=== PATIENT | male | born 1930 | race Caucasian/White ===

== ENCOUNTER 2016-07-25 08:32 | Day surgery (SDC) | payer OTHER ==
--- NOTE | 2016-07-25 08:31 | MH ---
cc: DO MIS PATEL R. STEVEN M.D. DATE OF ADMISSION: 07/25/2016 HISTORY OF PRESENT ILLNESS Mr. Clancy is an 85-year-old white male being scheduled for an outpatient diagnostic and therapeutic thoracentesis. His history dates back to February when he developed a right pleural effusion and was hospitalized as an outpatient. Fluid was drained and reportedly was a transudate with negative cytology and cultures. He traveled to [place], became more short of breath, came back home and had to go directly to the hospital where he was admitted and again drainage was pursued. He was seen in consultation by pulmonary and cardiology at that time and also seen by his atmospheric sciences professor. He has chronic congestive heart failure, chronic kidney disease with a GFR of about 20, and it was felt after additional drainage and further workup that the fluid was a transudate. Again, cultures and cytology were reportedly negative and the patient had his diuretics adjusted. Since that time he had been getting along fairly well but a recent follow-up chest x-ray July 11 reveals a moderate effusion and he has developed some increased dyspnea on exertion. Obviously though the fluid was managed fairly well with the adjustment in diuretics. He was a 10-15 pack-year smoker but quit smoking 40+ years ago. 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 His only symptom is dyspnea on exertion. He has no unusual cough. No chest pain. No progressive dyspnea of significance certainly not at rest. There is no prior history of malignancy and his only pneumonia was in childhood. PAST MEDICAL HISTORY 1. Hypertension. 2. CKD. 3. GFR 20. 4. Hypothyroidism. 5. Chronic heart disease. 6. Status post ablation for atrial fibrillation. 7. Diastolic heart failure. 8. Moderate aortic regurgitation with some elevation of the pulmonary artery pressures. 9. He has a pacemaker. 10.Arthroscopic surgery on the left knee. 11.Prior cholecystectomy. No history of thromboembolic disease. ALLERGIES None known. MEDICATIONS Reviewed and recorded in his chart. He is on chronic Warfarin for the atrial fibrillation. FAMILY HISTORY Father of complications after strokes in his 80s, mother with pneumonia at 91. A son in good health. A brother who has problems similar to his with regard to the heart and kidneys. SOCIAL HISTORY , living with his of 61 years. 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 Smoking noted. Rarely drinks alcohol. No animal exposures. REVIEW OF SYSTEMS Weight has been stable. No visual complaints. No anginal chest pain. He has chronic edema that has been better controlled recently with diuretics. Pulmonary as noted above. No current GI symptoms, in particular no reflux or abdominal pain. Musculoskeletal complaints, none serious. PHYSICAL EXAMINATION VITAL SIGNS: Blood pressure 126/70, pulse 66, temperature 97, respiratory rate 18, sat 94% room on room air. HEENT: Sclera anicteric. Pharynx is clear. NECK: No adenopathy palpable in the neck or supraclavicular region. Neck veins are not distended. LUNGS: Breath sounds are diminished at the right base with dullness to percussion but no wheezes, rales or congestion. HEART: Irregular heart rhythm. No audible S3. No harsh murmur. ABDOMEN: Soft. EXTREMITIES: 1-2+ pretibial edema both legs. No cyanosis or clubbing. IMAGING Chest x-ray July 11: Mild to moderate effusion increasing compared to previous. ASSESSMENT AND PLAN Mr. Clancy has recurrent pleural effusion. He has actually already been scheduled as an outpatient for re-drainage next week. We have reviewed the orders for evaluation of fluid so we are certain to get appropriate studies done and also going to order a non-contrast CT after this drainage to get a good look at his right lung and see if there is any other underlying pathology that has been missed on the previous chest x-rays which were done with fluid present. It is very likely this is a consequence of his chronic kidney disease and heart disease, but will see what this additional testing reveals. Further diagnostic and/or therapeutic intervention will depend on the results of these studies and his ongoing clinical course. R. MD DINA Tiwari/SUE /12:49 PM /8:28 AM
[~2016-07-25 08:32] MED LIST changes: -AMLO10TA2 PO; -ASPI1TAB69 PO; -ATOR40TA16 PO; -DOCU1CAP25 PO; -FURO40TA PO; -LEVO125T4 PO; -METO25TA3 PO; -MIDAZOLAM HCL 2 MG/2 ML VIAL ONE; -VITA100018 PO; -WARF-20 PO
[2016-07-25 09:12] LABS: APTT (PATIENT) 29.4 SEC (24.3-30.1); INTERNATIONAL NORMALIZED RATIO 1.3 RATIO; PROTHROMBIN TIME - PATIENT 14.2 SEC (9.8-11.6)
[2016-07-25 10:25] VITALS: BP 128/64; PULSE 56; RESP 18; TEMP 97; O2SAT 100
[2016-07-25 11:10] VITALS: BP 134/65; PULSE 53; RESP 20; TEMP 97.6; O2SAT 99
--- NOTE | 2016-07-25 11:18 | RADRPT ---
EXAM DATE/TIME: 07/25/2016 10:59 [facility] COMPARISON: CHEST EXPIRATION ONLY, March 24, 2016, 15:38. INDICATIONS : Post right side thoracentesis, 2L removed MEDICAL HISTORY : Myocardial infarction. Diabetes mellitus type II. pleural effusion SURGICAL HISTORY : Pacemaker. thoracentesis ENCOUNTER: Initial ACUITY: 1 day PAIN SCORE: 3/10 LOCATION: Right chest FINDINGS: A single frontal expiratory view of the chest was performed. Right lung is clear. Elevation left ita diaphragm. Left-sided pacemaker. The cardio-mediastinal contours and bronchopulmonary markings are unremarkable for an expiratory exam . Osseous structures are intact. CONCLUSION: No pneumothorax. Harvey Garcia MD on July 25, 2016 at 11:15 Board Certified Radiologist. This report was verified electronically.
[2016-07-25 11:25] VITALS: BP 138/60; PULSE 56; RESP 20; O2SAT 100
[2016-07-25 12:28] LABS: CHOLESTEROL, PLEURAL FLUID LESS THAN 50 MG/DL; GLUCOSE,PLEURAL FLUID 117 MG/DL
[2016-07-25 12:29] LABS: TOTAL PROTEIN,PLEURAL FLUID 3.4 GM/DL
[2016-07-25 12:52] LABS: PLEURAL FLUID LYMPHS 72 %
--- NOTE | 2016-07-25 12:56 | RADRPT ---
EXAM DATE/TIME: 07/25/2016 11:53 [facility] COMPARISON: CHEST EXPIRATION ONLY, July 25, 2016, 10:59. INDICATIONS : Post thorocentesis compare to chest xray . RADIATION DOSE: 5.52 CTDIvol (mGy) MEDICAL HISTORY : Cardiovascular disease. Right thorocentesis SURGICAL HISTORY : Pacemaker. ENCOUNTER: Initial ACUITY: 1 day PAIN SCALE: 0/10 LOCATION: Right chest TECHNIQUE: Volumetric scanning of the chest was performed. Using automated exposure control and adjustment of t he mA and/or kV according to patient size, radiation dose was kept as low as reasonably achievable to obtain optimal diagnostic quality images. FINDINGS: LUNGS: There is no consolidation or pneumothorax. No concerning pulmonary nodule is visualized. Pleural-bas ed density anteriorly within the right middle lobe measures 3.5 x 1.6 cm. PLEURAE: Soft tissue nodules are seen within the pleura of the left lower lobe medially measuring 2.8 x 1.4 cm . One more superiorly measuring 2.6 x 1.0 cm. Other areas of pleural thickening within the right lowe r lobe care transport nurse medially with calcifications. MEDIASTINUM: The heart and great vessels demonstrate no acute abnormality. There is no mediastinal or hilar lymph adenopathy. Coronary artery calcifications. Heart enlarged. AXILLAE: Within normal limits. No lymphadenopathy. MUSCULOSKELETAL: Within normal limits for patient age. MISCELLANEOUS: The visualized upper abdominal organs demonstrate no acute abnormality. Multiple low-density lesions some which are hyperdense predominat in the right kidney. Cholecystectomy. Left-sided pacemaker with single intact lead. CONCLUSION: 1. Multiple pleural-based nodules largest within the anterior right middle lobe measures 3.5 x 1.6 cm . These are nonspecific but metastatic disease cannot be excluded. Outpatient PET CT scan recommended . 2. Patient is status post right-sided thoracentesis. No significant pleural fluid. No pneumothorax. Harvey Garcia MD on July 25, 2016 at 12:47 Board Certified Radiologist. This report was verified electronically.
--- NOTE | 2016-07-25 14:56 | RADRPT ---
EXAM DATE/TIME: 07/25/2016 10:21 [facility] COMPARISON: No previous studies available for comparison. EXTERNAL COMPARISON: [facility], XR CHEST PA AND LAT, Jul 11 2016, June 09, 2016, April 15, 2016, February [id number], CT THORAX, W/O CONTRAST, March 01, 2016, XR CHEST PA & LAT, February 22, 2016. INDICATIONS : Right pleural effusion. MEDICAL HISTORY : Congestive heart failure. Hypercholesterolemia. Hypertension. Thyroid disease. Atrail fibrillation. A nticoagulant therapy. SURGICAL HISTORY : Pacemaker. Cholecystectomy. Right cataract surgery. Left shoulder surgery. Flutter ablation. Blood transfusions. ENCOUNTER: Subsequent ACUITY: 4 - 6 months PAIN SCORE: 0/10 LOCATION: Right chest FLUID: Total volume of 2,000 cc of clear, yellow fluid was removed. Fluid was sent to lab for ordered studies. TECHNIQUE: 1. Ultrasound guidance for thoracentesis. 2. Thoracentesis. The risks, benefits, and alternatives to ultrasound guided thoracentesis were explained to the patien t in lay simple terms, including the risk of bleeding and infection. Written and verbal informed con sent was obtained. Appropriate area for thoracentesis was marked under ultrasound guidance with the patient in the uprig ht position. Overlying skin was prepped and draped in the usual sterile fashion and with local anest hetic, a dermatotomy was made with an 11 blade scalpel. A 6 Croatian thoracentesis catheter was placed in the pleural space and fluid was removed. Catheter was then removed and a sterile dressing applie d. There were no immediate complications. The patient tolerated the procedure well and the left the ultrasound suite in stable condition. Chest radiograph is to be obtained. CONCLUSION: Uncomplicated ultrasound guided thoracentesis. Harvey Garcia MD on July 25, 2016 at 14:54 Board Certified Radiologist. This report was verified electronically.
== END 2016-07-25 12:15 | disposition home or self-care (01) ==
LOC: HRAD 08:32 → HRIP 09:17 → HRAD 12:15
PROVIDERS: ATTEND Family Medicine
DX: J90 Pleural effusion, not elsewhere classified (principal); R91.8 Other nonspecific abnormal finding of lung field; I13.0 Hypertensive heart and chronic kidney disease with heart failure and stage 1 through stage 4 chronic kidney disease, or unspecified chronic kidney disease; N18.9 Chronic kidney disease, unspecified; I35.1 Nonrheumatic aortic (valve) insufficiency; I50.9 Heart failure, unspecified; I25.10 Atherosclerotic heart disease of native coronary artery without angina pectoris; E78.00 Pure hypercholesterolemia, unspecified; Z95.0 Presence of cardiac pacemaker
CPT/HCPCS: 32555; 36415; 71010; 71250; 82465; 82945; 83615; 84157; 85610; 85730; 87015; 87070; 87102; 87116; 87205; 87206; 88112; 88305; 89051; C1729

== ENCOUNTER → 2016-07-25 | Day surgery (SDC) | payer OTHER ==
[~2016-07-25] MED LIST: AMLO10 PO; AMLO10TA2 PO; ASPI1TAB69 PO; ASPI81 PO; ATOR40TA16 PO; ATOR40TA49 PO; CHOL1CAP6 PO; DOCU1CAP25 PO; FURO1TAB93 PO; FURO40TA PO; KCL20 PO; LEVO125T3 PO; LEVO125T4 PO; METO25TA3 PO; METO50TA PO; MIDAZOLAM HCL 2 MG/2 ML VIAL ONE; VITA100018 PO; WARF-20 PO; WARF3TAB PO
== END | disposition home or self-care (01) ==
LOC: HDOC 09:00
PROVIDERS: ATTEND Internal Medicine Cardiovascular Disease
DX: I48.2 Chronic atrial fibrillation (principal)
CPT/HCPCS: J2250; J3010

== ENCOUNTER 2016-08-24 10:58 | Inpatient (IN) | payer OTHER, MEDICARE ==
[~2016-08-24] VITALS: Ht 175.3 cm; Wt 91.7 kg
[2016-08-24] MEDS ORDERED: AMLO10TA2 PO (11:19)
[2016-08-24] MEDS ORDERED: VITA100018 PO (11:19)
[2016-08-24] MEDS ORDERED: LEVO125T4 PO (11:19)
[2016-08-24] MEDS ORDERED: FURO40TA PO (11:19)
[2016-08-24] MEDS ORDERED: METO25TA3 PO (11:19)
[2016-08-24] MEDS ORDERED: WARF-20 PO (11:19)
[2016-08-24] MEDS ORDERED: ATOR40TA16 PO (11:19)
[2016-08-24] MEDS ORDERED: ASPI1TAB69 PO (11:19)
[2016-09-12] VITALS (15 sets, daily range): BP systolic 131–160; BP diastolic 64–74; PULSE 52–73; RESP 16; TEMP 96.1–98.1; O2SAT 96–99
[2016-09-12] MEDS ORDERED: POVIDONE IODINE 5% (ANTISEPSIS KIT) 4 APPLICATIONS EACH NARE PRN (06:00)
[2016-09-12] MEDS ORDERED: METOPROLOL TARTRATE 25 MG TAB PO PRN (06:00)
[2016-09-12] MEDS ORDERED: SODIUM CHLORID 0.9% 500 ML IV PRN (06:00)
[2016-09-12] MEDS ORDERED: INSULIN HUMAN REGULAR 1,000 UNITS/10 ML VIAL SQ PRN (06:00)
[2016-09-12] MEDS ORDERED: LACTATED RINGER'S 1000 ML IV PRN (06:00)
[2016-09-12] MEDS ORDERED: CHLORHEXIDINE GLUCONATE 2 % 1 PACK (2 CLOTHS) TOPICAL PRN (06:00)
[2016-09-12 06:46] LABS: APTT (PATIENT) 28.2 SEC (24.3-30.1); INTERNATIONAL NORMALIZED RATIO 1.1 RATIO; PROTHROMBIN TIME - PATIENT 11.7 SEC (9.8-11.6)
[2016-09-12] MEDS ORDERED: MIDAZOLAM HCL 2 MG/2 ML VIAL ONE (07:14)
[2016-09-12] MEDS ORDERED: FAMOTIDINE 20 MG/2 ML VIAL ONE (07:14)
[2016-09-12] MEDS ORDERED: STERILE TALC 4 GM AEROSOL CAN I-PLEURAL ONE (07:40)
[2016-09-12] MEDS ORDERED: BUPIVACAINE HCL PF 0.5% 10 ML VIAL INFIL ONE (07:40)
[2016-09-12] MEDS ORDERED: MISC INFORMATION OTHER ONE (08:45)
[2016-09-12] MEDS ORDERED: RESP: ALBUTEROL 2.5 MG/3 ML NEB (PRN) NEB (08:45)
[2016-09-12] MEDS ORDERED: GLUCAGON 1 MG/ML VIAL IV PRN (08:45)
[2016-09-12] MEDS ORDERED: DO NOT ADM ANY ANTICOAGULANT DRUGS PRN (08:45)
[2016-09-12] MEDS ORDERED: ONDANSETRON HCL 4 MG/2 ML VIAL IV PUSH PRN (08:45)
[2016-09-12] MEDS ORDERED: ACETAMINOPHEN 325 MG TAB PO PRN (08:45)
[2016-09-12] MEDS ORDERED: Post-op Orders (for Pharmacy) MISC OTHER ONE (08:45)
[2016-09-12] MEDS ORDERED: MAGNESIUM HYDROXIDE SUSP 30 ML CUP PO PRN (08:45)
[2016-09-12] MEDS ORDERED: DEXTROSE 50% IN WATER 50 ML VIAL(D50) IV PUSH PRN (08:45)
--- NOTE | 2016-09-12 08:46 | PD.OP ---
cc: Rosalee Suero MD Operative Report Date of Surgery: Sep 12, 2016 Preoperative Diagnosis: (1) Pleural effusion (2) CKD (chronic kidney disease) stage 4, GFR 15-29 ml/min (3) CHF (congestive heart failure) Postoperative Diagnosis: same Procedure: Right thoracoscopic exploration for recurrent pleural effusion, talc pleuradesis Anesthesia: Dr. Erazo Surgeon: Rosalee Suero Insurance Loss Assessor(s): JODI Valenzuela Operation and Findings: After adequate general anesthesia the patient was placed in the left lateral decubitus position and the right chest was prepped and draped in usual manner. A small posterior port incision was performed and electrocautery was used to obtain hemostasis and carry the dissection down through the fascia. A 22G seeker needle was used initially posteriorly and serous fluid was aspirated. A port was initially placed posteriorly followed by the camera. Overall, ~600 ml of serous effusion was drained. A second anterior port was positioned at ~ 6th intercostal space. Exploration of the right hemithorax was significant for few adhesions with no inflammation or sign of masses or nodules. A talc pleuradesis was performed through both ports. A 32F right angle chest tube was positioned through the anterior port, and secured with a 0-silk suture. The lung was ventilated and no significant air leaks were found. The subcutaneous tissues of the posterior port was approximated running 2-0 Vicryl suture and the skin was approximated using running 4-0 Monocryl subcuticular stitch. All sponge and history counts were correct at the close the procedure and the patient was transferred to the PACU for recovery purposes. Rosalee Suero MD Sep 12, 2016 08:46
[2016-09-12] MEDS: CHOLECALCIFEROL (VIT D3) 1000 UNIT TAB PO SCH (09:00)
[2016-09-12] MEDS ORDERED: fentaNYL CITRATE 250 MCG/5 ML AMP ONE (09:03)
[2016-09-12] MEDS ORDERED: *RESP: ALBUTEROL 2.5 MG/3 ML NEB (PRN) PERIprocedural Use ONLY NEB ONE (09:31)
[2016-09-12] MEDS: ACETAMINOPHEN 1000 MG/100 ML VIAL IV SCH ×3 (09:40→21:25)
[2016-09-12] MEDS: METOPROLOL TARTRATE 25 MG TAB PO SCH ×2 (09:51→21:23)
[2016-09-12 09:52] LABS: PLEURAL FLUID LYMPHS 96 %
[2016-09-12] MEDS: ASPIRIN EC 81 MG TABEC PO SCH (10:00)
[2016-09-12] MEDS: LEVOTHYROXINE SODIUM 125 MCG TAB PO SCH (10:00)
[2016-09-12] MEDS ORDERED: FUROSEMIDE 40 MG TAB PO SCH (10:00)
--- NOTE | 2016-09-12 11:14 | RADRPT ---
EXAM DATE/TIME: 09/12/2016 10:52 [facility] COMPARISON: CHEST SINGLE AP, March 20, 2016, 21:31. INDICATIONS : Post-op right thoracotomy. MEDICAL HISTORY : Hypertension. SURGICAL HISTORY : Cholecystectomy. Pacemaker. Cataracts. ENCOUNTER: Initial ACUITY: 1 day PAIN SCORE: 0/10 LOCATION: Chest FINDINGS: A right-sided chest tube is noted in good position. There is no pneumothorax. A tiny right pleural effusion is noted. The heart is enlarged. Degenerative changes and mild scoliosis of the thoracic s pine are noted. Minimal right basilar patchiness is noted consistent with atelectasis and/or infiltr ate. CONCLUSION: 1. Minimal right basilar patchiness consistent with atelectasis and/or infiltrate. 2. Cardiomegaly. 3. No pneumothorax. 4. Tiny right pleural effusion. 5. Degenerative changes and scoliosis of the thoracolumbar spine. Jayant Barger MD on September 12, 2016 at 11:08 Board Certified Radiologist. This report was verified electronically.
[2016-09-12] MEDS: INSULIN ASPART SUPPLEMENTAL SCALE SQ SCH ×2 (12:00→18:13)
[2016-09-12] MEDS ORDERED: PROPOFOL 200 MG/20 ML AMP IV ONE (14:04)
[2016-09-12] MEDS ORDERED: SODIUM CHLORID 0.9% 500 ML INJ 500 ML IV ONE (14:05)
[2016-09-12] MEDS ORDERED: ONDANSETRON HCL 4 MG/2 ML VIAL IV PUSH ONE (14:05)
[2016-09-12] MEDS ORDERED: NEOSTIGMINE 3 MG/3 ML SYR IV ONE (14:05)
[2016-09-12] MEDS: oxyCODONE/ACETAMINOPHEN 5 MG/325 MG TAB PO PRN (18:12)
[2016-09-12] MEDS: FUROSEMIDE 40 MG TAB PO SCH (18:23)
[2016-09-12] MEDS: PANTOPRAZOLE SOD 40 MG DELAYED RELEASE TAB PO SCH (21:23)
[2016-09-12] MEDS: ATORVASTATIN 40 MG TAB PO SCH (21:24)
[2016-09-12] MEDS: DOCUSATE CALCIUM 240 MG CAP PO SCH (21:24)
[2016-09-13] VITALS (27 sets, daily range): BP systolic 143–151; BP diastolic 65–77; PULSE 55–71; RESP 14–16; TEMP 97.4–97.9; O2SAT 92–96
[2016-09-13] MEDS: ACETAMINOPHEN 1000 MG/100 ML VIAL IV SCH (03:51)
[2016-09-13 06:08] LABS: AUTOMATED NEUTROPHIL # 7.6 TH/MM3 (1.8-7.7); BASOPHIL % 0.1 % (0.0-2.0); HEMATOCRIT 27.6 % (39.0-51.0); HEMO FLAGS DIFF FINAL; LYMPH % 6.2 % (9.0-44.0); LYMPHOCYTE # 0.5 TH/MM3 (1.0-4.8); MEAN CELL VOLUME 84.2 FL (80.0-100.0); MEAN CORPUSCULAR HEMOGLOBIN 27.5 PG (27.0-34.0); MEAN CORPUSCULAR HGB CONC 32.7 % (32.0-36.0); MONO % 5.5 % (0.0-8.0); NEUT % 88.2 % (16.0-70.0); PLATELET COUNT 179 TH/MM3 (150-450); RED BLOOD COUNT 3.28 MIL/MM3 (4.50-5.90); RED CELL DISTRIBUTION WIDTH 17.4 % (11.6-17.2); WHITE BLOOD COUNT 8.7 TH/MM3 (4.0-11.0)
[2016-09-13] MEDS: INSULIN ASPART SUPPLEMENTAL SCALE SQ SCH ×4 (06:10→17:04)
[2016-09-13] MEDS: LEVOTHYROXINE SODIUM 125 MCG TAB PO SCH (06:10)
--- NOTE | 2016-09-13 06:10 | RADRPT ---
EXAM DATE/TIME: 09/13/2016 04:51 [facility] COMPARISON: CHEST SINGLE AP, September 12, 2016, 10:52. INDICATIONS : Post thoracotomy. MEDICAL HISTORY : Hypertension. Cardiovascular disease. SURGICAL HISTORY : Pacemaker. Thoracotomy. ENCOUNTER: Subsequent ACUITY: 2 days PAIN SCORE: Non-responsive. LOCATION: Bilateral chest FINDINGS: A single view of the chest demonstrates no interval change in the pacemaker or right sided chest tube . There some minimal consolidation right lung base and small bilateral pleural effusions. Mild pulmon cristopher hilar vascular congestion.. Osseous structures are intact. CONCLUSION: Stable examination of the chest with persistent small pleural effusions and mild perihilar vascular c ongestion. Edinson Duffy MD on September 13, 2016 at 6:08 Board Certified Radiologist. This report was verified electronically.
[2016-09-13 06:18] LABS: PROTHROMBIN TIME - PATIENT 11.5 SEC (9.8-11.6)
[2016-09-13 06:49] LABS: BICARBONATE 26.5 MEQ/L (21.0-32.0)
[2016-09-13] MEDS: METOPROLOL TARTRATE 25 MG TAB PO SCH ×2 (09:00→21:31)
[2016-09-13] MEDS: ASPIRIN EC 81 MG TABEC PO SCH (09:18)
[2016-09-13] MEDS: FUROSEMIDE 40 MG TAB PO SCH (09:18)
[2016-09-13] MEDS: CHOLECALCIFEROL (VIT D3) 1000 UNIT TAB PO SCH (09:18)
--- NOTE | 2016-09-13 16:38 | PD.CAR.PN ---
CVT Progress Note Subjective/Hospital Course: 85/ male hx of recurrent pleural effusion/ PMH: chronic anemia, pacer insitu, CKD stage 4, CHF diastolic dysfunction Afib surgery: Right thoracoscopic exploration for recurrent pleural effusion, talc pleurodesis 09/12 cytology pending 09/13 pt on room air, pain controlled chest tube drained 160cc/ 12 hrs will leave in place eval for removal in am Objective: Vital Signs Date Time Temp Pulse Resp B/P Pulse Ox O2 Delivery O2 Flow Rate FiO2 09/13/16 15:50 97.5 62 16 150/65 93 09/13/16 15:49 93 Room Air 09/13/16 14:00 64 09/13/16 13:00 67 09/13/16 12:31 63 09/13/16 12:00 97.7 63 16 151/76 92 09/13/16 11:00 63 09/13/16 11:00 92 Room Air 09/13/16 10:00 58 09/13/16 09:47 55 09/13/16 08:00 57 09/13/16 08:00 97.4 57 16 143/70 96 09/13/16 07:38 63 09/13/16 07:30 95 Room Air 09/13/16 06:00 61 09/13/16 05:00 62 09/13/16 04:03 94 Room Air 09/13/16 04:02 97.9 71 16 146/74 94 09/13/16 04:00 65 09/13/16 03:00 58 09/13/16 02:00 56 09/13/16 01:00 55 09/13/16 00:00 56 09/12/16 23:54 96 Room Air 09/12/16 23:53 97.6 59 16 133/69 96 09/12/16 23:00 54 09/12/16 22:00 54 09/12/16 21:00 54 09/12/16 20:00 98 Room Air 09/12/16 20:00 97.6 70 16 131/64 98 09/12/16 20:00 56 09/12/16 19:00 62 09/12/16 18:00 64 09/12/16 17:00 56 Labs: Laboratory Tests Test 09/13/16 05:02 White Blood Count 8.7 TH/MM3 (4.0-11.0) Red Blood Count 3.28 MIL/MM3 (4.50-5.90) Hemoglobin 9.0 GM/DL (13.0-17.0) Hematocrit 27.6 % (39.0-51.0) Mean Corpuscular Volume 84.2 FL (80.0-100.0) Mean Corpuscular Hemoglobin 27.5 PG (27.0-34.0) Mean Corpuscular Hemoglobin 32.7 % Concent (32.0-36.0) Red Cell Distribution Width 17.4 % (11.6-17.2) Platelet Count 179 TH/MM3 (150-450) Mean Platelet Volume 8.5 FL (7.0-11.0) Neutrophils (%) (Auto) 88.2 % (16.0-70.0) Lymphocytes (%) (Auto) 6.2 % (9.0-44.0) Monocytes (%) (Auto) 5.5 % (0.0-8.0) Eosinophils (%) (Auto) 0.0 % (0.0-4.0) Basophils (%) (Auto) 0.1 % (0.0-2.0) Neutrophils # (Auto) 7.6 TH/MM3 (1.8-7.7) Lymphocytes # (Auto) 0.5 TH/MM3 (1.0-4.8) Monocytes # (Auto) 0.5 TH/MM3 (0-0.9) Eosinophils # (Auto) 0.0 TH/MM3 (0-0.4) Basophils # (Auto) 0.0 TH/MM3 (0-0.2) CBC Comment DIFF FINAL Differential Comment Prothrombin Time 11.5 SEC (9.8-11.6) Prothromb Time International 1.0 RATIO Ratio Sodium Level 136 MEQ/L (136-145) Potassium Level 4.0 MEQ/L (3.5-5.1) Chloride Level 98 MEQ/L (98-107) Carbon Dioxide Level 26.5 MEQ/L (21.0-32.0) Anion Gap 12 MEQ/L (5-15) Blood Urea Nitrogen 57 MG/DL (7-18) Creatinine 3.20 MG/DL (0.60-1.30) Estimat Glomerular Filtration 19 ML/MIN (>89) Rate Random Glucose 130 MG/DL (74-106) Calcium Level 9.9 MG/DL (8.5-10.1) Result Diagram: 09/13/16 0502 09/13/16 0502 Telemetry: afib (1) A-fib Plan: resume coumadin tomorrow (2) Anemia Plan: HGB stable 9.0 (3) Hypertension Plan: stable (4) History of cardiac pacemaker (5) CHF (congestive heart failure) (6) CKD (chronic kidney disease) stage 4, GFR 15-29 ml/min Plan: creatinine 3.20 recheck lab in one week prior to f/u Luz Maria Wilkinson Sep 13, 2016 16:38
[2016-09-13] MEDS: oxyCODONE/ACETAMINOPHEN 5 MG/325 MG TAB PO PRN ×2 (17:03→21:32)
[2016-09-13] MEDS: ATORVASTATIN 40 MG TAB PO SCH (21:30)
[2016-09-13] MEDS: DOCUSATE CALCIUM 240 MG CAP PO SCH (21:31)
[2016-09-13] MEDS: PANTOPRAZOLE SOD 40 MG DELAYED RELEASE TAB PO SCH (21:31)
[2016-09-14] VITALS (16 sets, daily range): BP systolic 136–171; BP diastolic 63–77; PULSE 57–84; RESP 16–20; TEMP 97.8–98.4; O2SAT 92–95
[2016-09-14] MEDS: LEVOTHYROXINE SODIUM 125 MCG TAB PO SCH (05:06)
[2016-09-14] MEDS: INSULIN ASPART SUPPLEMENTAL SCALE SQ SCH ×3 (05:21→11:51)
--- NOTE | 2016-09-14 06:09 | RADRPT ---
EXAM DATE/TIME: 09/14/2016 04:51 [facility] COMPARISON: CHEST SINGLE AP, September 13, 2016, 4:51. INDICATIONS : Shortness of breath. MEDICAL HISTORY : Hypertension. Cardiovascular disease. SURGICAL HISTORY : Pacemaker. Thoracotomy ENCOUNTER: Subsequent ACUITY: 3 days PAIN SCORE: Non-responsive. LOCATION: Bilateral chest FINDINGS: A single view of the chest demonstrates the right-sided consolidation and pleural effusion are unchan ged. Right-sided chest tube again seen with its tip overlying the right lung apex. Left lung is clear . Single-lead pacer in good position.. The cardiomediastinal contours are unremarkable. Osseous str uctures are intact. CONCLUSION: Persistent consolidation and pleural effusion of the right side. No new infiltrate or mass. Edinson Duffy MD on September 14, 2016 at 6:06 Board Certified Radiologist. This report was verified electronically.
[2016-09-14 06:24] LABS: INTERNATIONAL NORMALIZED RATIO 1.1 RATIO; PROTHROMBIN TIME - PATIENT 11.9 SEC (9.8-11.6)
[2016-09-14] MEDS ORDERED: FUROSEMIDE 40 MG TAB PO SCH (09:00)
[2016-09-14] MEDS: CHOLECALCIFEROL (VIT D3) 1000 UNIT TAB PO SCH (09:00)
[2016-09-14] MEDS: ASPIRIN EC 81 MG TABEC PO SCH (09:10)
[2016-09-14] MEDS: METOPROLOL TARTRATE 25 MG TAB PO SCH (09:10)
[2016-09-14] MEDS: oxyCODONE/ACETAMINOPHEN 5 MG/325 MG TAB PO PRN (09:40)
--- NOTE | 2016-09-14 13:49 | RADRPT ---
EXAM DATE/TIME: 09/14/2016 12:50 [facility] COMPARISON: CHEST SINGLE AP, September 12, 2016, 10:52. CT THORAX W/O CONTRAST, July 25, 2016, 11:53. CHEST EXP IRATION ONLY, July 25, 2016, 10:59. CHEST SINGLE AP, September 14, 2016, 4:51. INDICATIONS : Chest tube removal. Evaluate for pneumothorax. MEDICAL HISTORY : Cardiovascular disease. Right thoracentesis SURGICAL HISTORY : Pacemaker. ENCOUNTER: Subsequent ACUITY: 3 days PAIN SCORE: 0/10 LOCATION: Bilateral chest FINDINGS: Chest tube has been removed on the right without pneumothorax. Minimal parenchymal changes are prese nt in the right base. Left lung is clear. Pacer is noted. Heart is enlarged with mild interstitial edema. CONCLUSION: There is no evidence for pneumothorax. Steffen Al MD FACR on September 14, 2016 at 13:37 Board Certified Radiologist. This report was verified electronically.
[2016-09-14] MEDS ORDERED: DOCU1CAP25 PO (14:02)
[2016-09-14] MEDS ORDERED: FURO40TA PO (14:02)
--- NOTE | 2016-09-14 14:13 | HHI.DS ---
Discharge Summary Admission Date Sep 12, 2016 at 05:21 Discharge Date: Sep 14, 2016 Admitting Diagnosis recurrent pleural effusion (1) Right thoracoscopic exploration for recurrent pleural effusion, talc pleuradesis Diagnosis: Secondary (2) CKD (chronic kidney disease) stage 4, GFR 15-29 ml/min Diagnosis: Principal (3) History of cardiac pacemaker Diagnosis: Secondary (4) Hypertension Diagnosis: Principal (5) A-fib Diagnosis: Principal (6) CHF (congestive heart failure) Diagnosis: Secondary (7) Pleural effusion Diagnosis: Secondary Procedures Right thoracoscopic exploration for recurrent pleural effusion, talc pleuradesis 09/13 Brief History 85/ male hx of recurrent pleural effusion/ PMH: chronic anemia, pacer insitu, CKD stage 4, CHF diastolic dysfunction Afib surgery: Right thoracoscopic exploration for recurrent pleural effusion, talc pleurodesis 09/12 CBC/BMP: 09/13/16 0502 09/13/16 0502 Significant Findings Laboratory Tests Test 09/12/16 09/12/16 09/13/16 09/14/16 06:20 08:16 05:02 05:37 Prothrombin Time 11.7 SEC 11.9 SEC (9.8-11.6) (9.8-11.6) Pleural Fluid WBC 1153 /MM3 (0-10) Pleural Fluid RBC 93368 /MM3 (0-0) Red Blood Count 3.28 MIL/MM3 (4.50-5.90) Hemoglobin 9.0 GM/DL (13.0-17.0) Hematocrit 27.6 % (39.0-51.0) Red Cell Distribution Width 17.4 % (11.6-17.2) Neutrophils (%) (Auto) 88.2 % (16.0-70.0) Lymphocytes (%) (Auto) 6.2 % (9.0-44.0) Lymphocytes # (Auto) 0.5 TH/MM3 (1.0-4.8) Blood Urea Nitrogen 57 MG/DL (7-18) Creatinine 3.20 MG/DL (0.60-1.30) Estimat Glomerular Filtration 19 ML/MIN (>89) Rate Random Glucose 130 MG/DL (74-106) Imaging PE at Discharge GENERAL: SKIN: Warm and dry.incision intact right chest / chest tube removed HEAD: Normocephalic. EYES: No scleral icterus. No injection or drainage. NECK: Supple, trachea midline. No JVD or lymphadenopathy. CARDIOVASCULAR: irregular rate and rhythm without murmurs, gallops, or rubs. RESPIRATORY: Breath sounds equal bilaterally. diminished on right No accessory muscle use. GASTROINTESTINAL: Abdomen soft, non-tender, nondistended. MUSCULOSKELETAL: No cyanosis, or edema. BACK: Nontender without obvious deformity. No CVA tenderness. Hospital Course 09/13 pt on room air, pain controlled chest tube drained 160cc/ 12 hrs will leave in place 09/14 chest tube removed without difficulty weaned to room air post chest tube removal cxr noted, no evidence of PTX will dc home today ok to resume coumadin Pt Condition on Discharge: Good Discharge Disposition: Discharge Home Discharge Instructions DIET: Follow Instructions for: Heart Healthy Diet Activities you can perform: Shower Only-No Bath Activities to avoid: Lifting/Bending, Strenuous Activity, Driving Additional Activity Instructio: no lifting > 8 lbs or gallon of milk Follow up Referrals: [facility] PCP Follow-up Pulmonology with Mireya Galvez MD Surgical New Orders: BASIC METABOLIC PROF - 2 Weeks New Medications: Docusate Calcium (Stool Softener) 240 Mg Cap 240 MG PO HS Constipation #30 CAP Furosemide (Furosemide) 40 Mg Tab 40 MG PO DAILY chf #30 Ref 1 TAB Continued Medications: Amlodipine (Amlodipine) 10 Mg Tab 10 MG PO DAILY Blood Pressure Management #30 Ref 0 TAB Aspirin (Aspirin) 81 Mg Tabdr 81 MG PO DAILY TAB Atorvastatin (Atorvastatin) 40 Mg Tab 40 MG PO HS Cholesterol Management #30 Ref 0 TAB Cholecalciferol (Vitamin D3) 1,000 Unit Tab 1000 UNITS PO DAILY Nutritional Supplement #1 Ref 0 BOTTLE Levothyroxine (Levothyroxine) 125 Mcg Tab 125 MCG PO DAILY Thyroid #30 Ref 0 TAB Metoprolol Tartrate (Metoprolol Tartrate) 25 Mg Tab 25 MG PO BID #60 Ref 0 TAB Warfarin (Warfarin) 4 Mg Tab 4 MG PO DAILY Blood Clot Prevention #30 Ref 0 TAB Discontinued Medications: Furosemide (Furosemide) 40 Mg Tab 40 MG PO BID #60 Ref 0 TAB Luz Maria Wilkinson Sep 14, 2016 14:12
== END 2016-09-14 15:00 | disposition home or self-care (01) | DRG 167 ==
LOC: HSDI 09-12 05:21 → HCIN 09-12 12:44
PROVIDERS: ADMIT Thoracic Surgery (Cardiothoracic Vascular Surgery); ATTEND Thoracic Surgery (Cardiothoracic Vascular Surgery)
PROC: 3E0L3GC Introduction of Other Therapeutic Substance into Pleural Cavity, Percutaneous Approach (ICD-10-PCS; 2016-09-12)
PROC: 0BJQ4ZZ Inspection of Pleura, Percutaneous Endoscopic Approach (ICD-10-PCS; principal; 2016-09-12 07:19)
DX: J90 Pleural effusion, not elsewhere classified (principal); I50.32 Chronic diastolic (congestive) heart failure; I12.9 Hypertensive chronic kidney disease with stage 1 through stage 4 chronic kidney disease, or unspecified chronic kidney disease; N18.4 Chronic kidney disease, stage 4 (severe); I48.92 Unspecified atrial flutter; I48.91 Unspecified atrial fibrillation; J44.9 Chronic obstructive pulmonary disease, unspecified; Z95.0 Presence of cardiac pacemaker; Z79.01 Long term (current) use of anticoagulants; Z79.82 Long term (current) use of aspirin; D64.9 Anemia, unspecified; E78.5 Hyperlipidemia, unspecified; E03.9 Hypothyroidism, unspecified; Z86.718 Personal history of other venous thrombosis and embolism; Z87.891 Personal history of nicotine dependence
CPT/HCPCS: 71010; 80048; 82948; 85025; 85610; 85730; 86850; 86900; 86901; 87015; 87070; 87102; 87116; 87205; 87206; 88112; 88305; 89051; 94150; 94664; J0131; J0690; J1815; J2250; J2405; J2710; J3010; J7040; J7613

== ENCOUNTER → 2016-08-24 | Outpatient (CLI) | payer OTHER ==
[~2016-08-24] MED LIST changes: +AMLO10TA2 PO; +ASPI1TAB69 PO; +ATOR40TA16 PO; +DOCU1CAP25 PO; +FURO40TA PO; +LEVO125T4 PO; +METO25TA3 PO; +VITA100018 PO; +WARF-20 PO
[2016-08-24 12:22] LABS: BLOOD, URINE SMALL (NEG); COMMENT (UR) CULT NOT INDICATED; CULTURE IF INDICATED CULT NOT INDICATED; GLUCOSE,URINE NEG (NEG); HYALINE CAST, URINE 2 /lpf (RARE); KETONE, URINE NEG (NEG); NITRITE,URINE NEG (NEG); SQUAMOUS EPITHELIAL CELL URINE <1 /hpf (0-5); URINE COLOR YELLOW (YELLW/STRAW)
[2016-08-24 12:24] LABS: HEMATOCRIT 29.3 % (39.0-51.0); MEAN CELL VOLUME 84.9 FL (80.0-100.0); MEAN CORPUSCULAR HEMOGLOBIN 27.5 PG (27.0-34.0); MEAN CORPUSCULAR HGB CONC 32.4 % (32.0-36.0); PLATELET COUNT 259 TH/MM3 (150-450); RED BLOOD COUNT 3.45 MIL/MM3 (4.50-5.90); RED CELL DISTRIBUTION WIDTH 18.4 % (11.6-17.2); REVIEW FLAG FINAL; WHITE BLOOD COUNT 8.1 TH/MM3 (4.0-11.0)
[2016-08-24 12:30] LABS: APTT (PATIENT) 30.4 SEC (24.3-30.1); INTERNATIONAL NORMALIZED RATIO 1.2 RATIO; PROTHROMBIN TIME - PATIENT 13.7 SEC (9.8-11.6)
[2016-08-24 12:42] LABS: BICARBONATE 29.5 MEQ/L (21.0-32.0); POTASSIUM 3.8 MEQ/L (3.5-5.1)
--- NOTE | 2016-08-24 19:51 | EKG ---
Date Performed: 08/24/2016 Time Performed: 11:10:22 PTAGE: 85 years EKG: ATRIAL FIBRILLATION ELECTRONIC VENTRICULAR PACEMAKER NONSPECIFIC ST-T CHANGES ABNORMAL RHYT ECG PREVIOUS TRACING : 03/20/2016 21.05 Compared to prior tracing no significant change DOCTOR: Maria R Mccollum Interpretating Date/Time 08/24/2016 19:49:54
== END ==
LOC: CPRE 10:55
PROVIDERS: ATTEND Thoracic Surgery (Cardiothoracic Vascular Surgery)
DX: Z01.810 Encounter for preprocedural cardiovascular examination (principal); Z01.812 Encounter for preprocedural laboratory examination; Z79.01 Long term (current) use of anticoagulants; J90 Pleural effusion, not elsewhere classified; R94.31 Abnormal electrocardiogram [ECG] [EKG]
CPT/HCPCS: 36415; 80048; 81001; 85027; 85610; 85730; 86850; 86900; 86901; 93005

== ENCOUNTER → 2016-09-07 | Outpatient (CLI) | payer OTHER ==
[~2016-09-07] MED LIST changes: -AMLO10 PO; -ASPI81 PO; -ATOR40TA49 PO; -CHOL1CAP6 PO; -FURO1TAB93 PO; -KCL20 PO; -LEVO125T3 PO; -METO50TA PO; -WARF3TAB PO
== END ==
LOC: CPRE 10:33
PROVIDERS: ATTEND Thoracic Surgery (Cardiothoracic Vascular Surgery)
DX: Z01.818 Encounter for other preprocedural examination (principal)

== ENCOUNTER → 2017-01-09 | Outpatient (CLI) | payer OTHER ==
--- NOTE | 2017-01-11 10:33 | RSPPFT ---
DATE OF PROCEDURE: 01/09/17 COMMENTS: VOLUMES DYNAMIC: FVC and FEV1 mildly reduced. STATIC: TLC, RV and FRC are all mildly reduced. FLOWS: FV1% normal; FEF 25-75 mildly reduced. DIFFUSION: Severely reduced. FLOW VOLUME LOOP: Restrictive configuration. IMPRESSION: Mild to moderate restrictive ventilator defect with a severe reduction in diffusion. There is no significant airways obstruction and no significant improvement post-bronchodilator.
== END ==
LOC: PHRSP 10:39
PROVIDERS: ATTEND Internal Medicine
DX: R06.02 Shortness of breath (principal)
CPT/HCPCS: 94060; 94620; 94726; 94729

== ENCOUNTER 2017-10-14 11:14 | Emergency (ER) | payer OTHER ==
[~2017-10-14] VITALS: Ht 175.3 cm; Wt 95.0 kg
[2017-10-14 11:17] VITALS: BP 154/67; PULSE 61; RESP 16; TEMP 97.8; O2SAT 93
[2017-10-14] MEDS ORDERED: ASPI-516 CHEW (11:31)
[2017-10-14] MEDS ORDERED: WARF-58 PO ×2 (11:31)
[2017-10-14] MEDS ORDERED: FURO40TA PO (11:32)
[2017-10-14] MEDS ORDERED: TETANUS/DIPHTHERIA TOXOID ADULT 0.5 ML VIAL IM ONE (11:45)
--- NOTE | 2017-10-14 11:45 | PD ---
HPI Chief Complaint: Fall Time Seen by Provider: 11:41 Travel History International Travel<30 days: No Contact w/Intl Traveler<30days: No Traveled to known affect area: No History of Present Illness HPI Patient presents with complaints of right orbital hematoma and right forearm and hand pain. Reports a fall at approximately 2:00 yesterday. States he stumbled in an area of cracked concrete and fell forward hitting his right face and extending his right arm to break his fall. Denies any loss of consciousness. Denies any headache. Denies any neck pain. Tetanus 2016. Denies any visual changes or loss. Denies any eye movement pain. Reports uncontrolled bleeding from a skin tear in his right upper arm. He is on Coumadin for atrial fibrillation. Reports increased swelling of the right forearm and right hand. Pain 4 out of 10. Aggravated with movement. Relieved with rest. PFSH Past Medical History Hx Anticoagulant Therapy: Yes (WARFARIN) Asthma: No Atrial Fibrillation: Yes Blood Disorders: No Anxiety: No Depression: No Heart Rhythm Problems: Yes (AFIB) Cancer: No Cardiovascular Problems: Yes (PM/ AFIB ) High Cholesterol: Yes Chemotherapy: No Chest Pain: No Congestive Heart Failure: Yes COPD: No Diabetes: No Diminished Hearing: Yes (bilateral) Endocrine: Yes Genitourinary: No Hepatitis: No Hiatal Hernia: No Hypertension: Yes Immune Disorder: No Musculoskeletal: Yes (LIMITED ROM LUE) Neurologic: No Psychiatric: No Reproductive: No Respiratory: Yes (PLEURAL EFFUSIONS) Immunizations Current: Yes Radiation Therapy: No Sleep Apnea: No Thyroid Disease: Yes Tetanus Vaccination: < 5 Years Influenza Vaccination: Yes ?: Not Past Surgical History Abdominal Surgery: Yes (CHOLECYSTECTOMY) AICD: No Body Medical Devices: PACER Cardiac Surgery: Yes (VENTRICULAR PACER, ABLATION) Cholecystectomy: Yes Ear Surgery: No Endocrine Surgery: No Eye Surgery: Yes (RIGHT CATARACT SURGERY 04/17/14) Genitourinary Surgery: No Gynecologic Surgery: No Joint Replacement: No Pacemaker: Yes (VENTRICULAR) Thoracic Surgery: No Other Surgery: Yes (FLUTTER ABALTION/LEFT SHOULDER) Social History Alcohol Use: Yes (OCC) Tobacco Use: No (40 YR AGO) Substance Use: No Allergies-Medications (Allergen,Severity, Reaction): Coded Allergies: No Known Allergies (Verified Adverse Reaction, Unknown, 10/14/17) Reported Meds & Prescriptions Reported Meds & Active Scripts Active Reported Furosemide 40 Mg Tab 40 Mg PO BID Warfarin 3 Mg Tab 3 Mg PO TU,WE,FR.SA,KLEIN Aspirin 81 Mg Chew 81 Mg CHEW DAILY Atorvastatin (Atorvastatin Calcium) 40 Mg Tab 40 Mg PO HS Warfarin 4 Mg Tab 4 Mg PO MO,TH Metoprolol Tartrate 25 Mg Tab 25 Mg PO BID Amlodipine (Amlodipine Besylate) 10 Mg Tab 5 Mg PO BID Levothyroxine (Levothyroxine Sodium) 125 Mcg Tab 125 Mcg PO DAILY Review of Systems General / Constitutional: No: Fever Eyes: No: Visual changes HENT: No: Headaches Cardiovascular: No: Chest Pain or Discomfort Respiratory: No: Shortness of Breath Gastrointestinal: No: Abdominal Pain Genitourinary: No: Dysuria Musculoskeletal: Positive: Edema, Pain Skin: No Rash Neurologic: No: Weakness Psychiatric: No: Depression Endocrine: No: Polydipsia Hematologic/Lymphatic: No: Easy Bruising Physical Exam Narrative GENERAL: Well-nourished, well-developed patient. SKIN: Focused skin assessment warm/dry. HEAD: Normocephalic. Significant right orbital hematoma, unable to palpate ocular rim EYES: No scleral icterus. No injection or drainage. Ocular movement intact NECK: Supple, trachea midline. No JVD or lymphadenopathy. CARDIOVASCULAR: Regular rate and rhythm without murmurs, gallops, or rubs. RESPIRATORY: Breath sounds equal bilaterally. No accessory muscle use. GASTROINTESTINAL: Abdomen soft, non-tender, nondistended. MUSCULOSKELETAL: No cyanosis, or edema. Examination of the distal right upper arm reveals a small skin tear bleeding is controlled. Examination of the forearm and hand reveals significant ecchymosis and edema with decreased range of motion secondary to this, no obvious bony deformity BACK: Nontender without obvious deformity. No CVA tenderness. Data Data Last Documented VS Vital Signs Date Time Temp Pulse Resp B/P (MAP) Pulse Ox O2 Delivery O2 Flow Rate FiO2 10/14/17 11:17 97.8 61 16 154/67 (96) 93 Orders Orders Forearm (2vws) (10/14/17 ) Hand, Complete ([id number]) (10/14/17 ) Ct Facial Bones W/O Iv Cont (10/14/17 ) Tetanus/Diphtheria Tox Adult (Tetanus/Di (10/14/17 11:45) Complete Blood Count With Diff (10/14/17 11:45) Prothrombin Time / Inr (Pt) (10/14/17 11:45) Splint Or Brace Apply/Monitor (10/14/17 12:53) Sling Cradle Arm (10/14/17 ) Fiberglass Splint Forearm Adul (10/14/17 ) Labs Laboratory Tests Test 10/14/17 12:00 White Blood Count 7.1 TH/MM3 Red Blood Count 3.12 MIL/MM3 Hemoglobin 9.3 GM/DL Hematocrit 28.6 % Mean Corpuscular Volume 91.7 FL Mean Corpuscular Hemoglobin 29.8 PG Mean Corpuscular Hemoglobin Concent 32.5 % Red Cell Distribution Width 15.3 % Platelet Count 210 TH/MM3 Mean Platelet Volume 7.9 FL Neutrophils (%) (Auto) 81.4 % Lymphocytes (%) (Auto) 8.9 % Monocytes (%) (Auto) 7.3 % Eosinophils (%) (Auto) 2.2 % Basophils (%) (Auto) 0.2 % Neutrophils # (Auto) 5.8 TH/MM3 Lymphocytes # (Auto) 0.6 TH/MM3 Monocytes # (Auto) 0.5 TH/MM3 Eosinophils # (Auto) 0.2 TH/MM3 Basophils # (Auto) 0.0 TH/MM3 CBC Comment DIFF FINAL Differential Comment Prothrombin Time 24.6 SEC Prothromb Time International Ratio 2.4 RATIO MDM Medical Decision Making Medical Screen Exam Complete: Yes Emergency Medical Condition: Yes Differential Diagnosis Ocular hematoma, forearm fracture, wrist fracture, hand fracture, hypercoagulation Narrative Course Assessment plan discussed with patient and at bedside. CBC reveals anemia however he appears to be at baseline. INR 2.4. Ulnar gutter and sling provided to patient. Last 72 hours Impressions Radius/Ulna X-Ray 10/14/17 0000 Signed Impressions: Service Date/Time: Saturday, October 14, 2017 12:16 - CONCLUSION: No evidence of recent bony injury. Jose Real MD Maxillofacial CT 10/14/17 0000 Signed Impressions: Service Date/Time: Saturday, October 14, 2017 12:57 - CONCLUSION: 1. Prominent right periorbital soft tissue hematoma. No radiopaque foreign bodies. 2. Right globe is grossly intact without retroconal abnormality. 3. No acute facial fractures. Dajuan Hernandez MD Hand X-Ray 10/14/17 0000 Signed Impressions: Service Date/Time: Saturday, October 14, 2017 12:16 - CONCLUSION: 1. Fracture of the 5th metacarpal proximal metaphysis. 2. 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 Jose Real MD Diagnosis Primary Impression: Boxjohn's metacarpal fracture, neck, closed Qualified Codes: S62.366A - Nondisplaced fracture of neck of fifth metacarpal bone, right hand, initial encounter for closed fracture Additional Impressions: Traumatic hematoma of right orbit Qualified Codes: S05.11XA - Contusion of eyeball and orbital tissues, right eye, initial encounter Skin tear of elbow without complication Qualified Codes: S51.011A - Laceration without foreign body of right elbow, initial encounter Patient Instructions: General Instructions Additional Instructions: Tylenol for pain, sling for comfort, no changes to Coumadin dosing at this time. Follow-up with PCP, return to emergency room with any onset of new symptoms. Med/Other Pt SpecificInfo: No Meds Exist/No RX given Disposition: 01 DISCHARGE HOME Condition: Good Abraham Rain MD October 14, 2017 11:44
[2017-10-14 12:08] LABS: AUTOMATED NEUTROPHIL # 5.8 TH/MM3 (1.8-7.7); BASOPHIL % 0.2 % (0.0-2.0); EOSINOPHIL # 0.2 TH/MM3 (0-0.4); EOSINOPHIL % 2.2 % (0.0-4.0); HEMATOCRIT 28.6 % (39.0-51.0); HEMOGLOBIN 9.3 GM/DL (13.0-17.0); LYMPH % 8.9 % (9.0-44.0); LYMPHOCYTE # 0.6 TH/MM3 (1.0-4.8); MEAN CELL VOLUME 91.7 FL (80.0-100.0); MEAN CORPUSCULAR HEMOGLOBIN 29.8 PG (27.0-34.0); MEAN CORPUSCULAR HGB CONC 32.5 % (32.0-36.0); MEAN PLATELET VOLUME 7.9 FL (7.0-11.0); MONO % 7.3 % (0.0-8.0); MONOCYTE # 0.5 TH/MM3 (0-0.9); NEUT % 81.4 % (16.0-70.0); PLATELET COUNT 210 TH/MM3 (150-450); RED BLOOD COUNT 3.12 MIL/MM3 (4.50-5.90); RED CELL DISTRIBUTION WIDTH 15.3 % (11.6-17.2); WHITE BLOOD COUNT 7.1 TH/MM3 (4.0-11.0)
[2017-10-14 12:20] LABS: INTERNATIONAL NORMALIZED RATIO 2.4 RATIO; PROTHROMBIN TIME - PATIENT 24.6 SEC (9.8-11.6)
--- NOTE | 2017-10-14 12:31 | RADRPT ---
EXAM DATE/TIME: 10/14/2017 12:16 [facility] COMPARISON: HAND RIGHT COMPLETE ([id number]), October 14, 2017, 12:16. INDICATIONS : Fell yesterday, has swelling and bruising right forearm MEDICAL HISTORY : Cardiovascular disease. Right thorocentesis SURGICAL HISTORY : Pacemaker. ENCOUNTER: Initial ACUITY: 2 days PAIN SCORE: 5/10 LOCATION: Right forearm FINDINGS: Two view examination of the right forearm demonstrates no evidence of fracture or dislocation. Bony mineralization is mildly decreased. The soft tissue structures are intact. CONCLUSION: No evidence of recent bony injury. Jose Real MD on October 14, 2017 at 12:28 Board Certified Radiologist. This report was verified electronically.
--- NOTE | 2017-10-14 12:33 | RADRPT ---
EXAM DATE/TIME: 10/14/2017 12:16 [facility] COMPARISON: No previous studies available for comparison. INDICATIONS : Fell yesterday, has right hand pain and swelling MEDICAL HISTORY : Cardiovascular disease. Right thorocentesis SURGICAL HISTORY : Pacemaker. ENCOUNTER: Initial ACUITY: 2 days PAIN SCORE: 5/10 LOCATION: Right hand FINDINGS: Bone density is decreased. There is advanced degenerative changes with bony overgrowth of the DIP mahin int of the 2nd and 5th digits. Moderate degenerative changes also present in the 1st CMC articulatio n. No fracture seen. No radiopaque foreign body. There multiple ossific or calcific densities in t he soft tissues lateral to the proximal carpal row which may represent heterotopic ossification or va scular calcification. The alignment of the lunate suggests posterior rotary subluxation. Moderate n arrowing of the radiocarpal row. Moderate soft tissue swelling of the medial aspect of the hand and wrist. There is a moderately displaced fracture of the proximal metaphysis of the 5th metacarpal bone, only seen on the frontal view. CONCLUSION: 1. Fracture of the 5th metacarpal proximal metaphysis. 2. 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 Jose Real MD on October 14, 2017 at 12:29 Board Certified Radiologist. This report was verified electronically.
--- NOTE | 2017-10-14 13:18 | RADRPT ---
EXAM DATE/TIME: 10/14/2017 12:57 [facility] COMPARISON: No previous studies available for comparison. INDICATIONS : Trauma, fall yesterday. Right periorbital swelling. RADIATION DOSE: 30.05 CTDIvol (mGy) MEDICAL HISTORY : Hypertension. SURGICAL HISTORY : Tonsillectomy. ENCOUNTER: Initial ACUITY: 1 day PAIN SCORE: 7/10 LOCATION: Right eye TECHNIQUE: Volumetric scanning of the facial bones was performed. Using automated exposure control and adjustme nt of the mA and/or kV according to patient size, radiation dose was kept as low as reasonably achiev able to obtain optimal diagnostic quality images. DICOM format image data is available electronicall y for review and comparison. FINDINGS: ORBITS: The orbital and infraorbital osseous structures are intact. The retroconal structures have a normal configuration. No radiopaque foreign bodies are seen. NASAL BONE: The nasal bone and maxillary spine are intact ZYGOMATIC ARCHES: Symmetric without evidence of fracture. SINUSES: Subtle inferior right mesentery sinus mucoperiosteal thickening. The maxillary, ethmoid and frontal s inuses are intact. No air-fluid levels seen. NASAL CAVITY: The nasal septum is intact and midline. The lacrimal ducts are intact. SOFT TISSUES: Prominent right periorbital hematoma. No radiopaque foreign bodies seen. INTRACRANIAL: No intracranial air seen. CRIBIFORM PLATE: Grossly intact. CONCLUSION: 1. Prominent right periorbital soft tissue hematoma. No radiopaque foreign bodies. 2. Right globe is grossly intact without retroconal abnormality. 3. No acute facial fractures. Dajuan Hernandez MD on October 14, 2017 at 13:13 Board Certified Radiologist. This report was verified electronically.
== END 2017-10-14 13:42 | disposition home or self-care (01) ==
LOC: PHED 11:14
DX: S62.366A Nondisplaced fracture of neck of fifth metacarpal bone, right hand, initial encounter for closed fracture (principal); S51.019A Laceration without foreign body of unspecified elbow, initial encounter; S05.11XA Contusion of eyeball and orbital tissues, right eye, initial encounter; W01.0XXA Fall on same level from slipping, tripping and stumbling without subsequent striking against object, initial encounter; I48.91 Unspecified atrial fibrillation; E78.00 Pure hypercholesterolemia, unspecified; I50.9 Heart failure, unspecified; I11.0 Hypertensive heart disease with heart failure; Z79.01 Long term (current) use of anticoagulants
CPT/HCPCS: 29125; 70486; 73090; 73130; 85025; 85610; 90471

== ENCOUNTER 2018-01-24 10:19 | Observation (INO) ==
--- NOTE | 2018-01-24 11:15 | ED ---
HPI General Chief complaint: Recheck/Abnormal Lab/Rx Stated complaint: LOW BP/ LOW HEMAGLOBIN/ SENT BY PRIMARY Source: patient Mode of arrival: ambulatory Limitations: no limitations History of Present Illness HPI narrative: 87yo M with PMH of afib on coumadin, pacemaker, anemia was sent in by Dr. Beaver for blood transfusion and low blood pressure. Pt was at his office today and hemoglobin from Monday was low at 8.3. Pt also complains of intermittent dark stool. Denies any fever, chest pain, sob, n/v, abdominal pain , focal weakness or numbness. Said he sometimes has sob with exertion but has been going on for months and nothing new. Related Data Home Medications Medication Instructions Recorded Confirmed amlodipine 5 m PO BID 01/24/18 01/24/18 aspirin [Aspir-81] 81 mg PO DAILY 01/24/18 01/24/18 atorvastatin 40 mg PO DAILY 01/24/18 01/24/18 furosemide 40 mg PO BID 01/24/18 01/24/18 levothyroxine 125 mcg PO DAILY 01/24/18 01/24/18 metoprolol tartrate 25 mg PO BID 01/24/18 01/24/18 warfarin 3 mg PO QTUTHSASU 01/24/18 01/24/18 warfarin 4 mg PO Q OTHER DAY 01/24/18 01/24/18 Allergies Allergy/AdvReac Type Severity Reaction Status Date / Time No Known Allergies Allergy Verified 01/24/18 10:33 Review of Systems ROS: all other systems reviewed are negative [facility] Medical History Medical History Chronic kidney disease (Acute) High cholesterol (Acute) Hypertension (Acute) Hypothyroid (Acute) Pacemaker (Acute) Surgical History Surgical History History of cholecystectomy (Acute) Social History Social History Substance History: No History of Abuse Smoking Status: Former smoker How Often Do You Have a Drink Containing Alcohol: 2 to 4 times a month Recent Travel in [facility] within the Last 8 Weeks: No Recent Out of Country Travel within the Last 8 Weeks: No Immunization History Tetanus Immunization: Unsure Hx Influenza Vaccine This Season: Yes Exam Narrative Exam Narrative: GENERAL: 87yo M in mild distress. SKIN: Focused skin assessment warm/dry. HEAD: Atraumatic. Normocephalic. EYES: Pupils equal and round. No scleral icterus. No injection or drainage. ENT: No nasal bleeding or discharge. Mucous membranes pink and moist. NECK: Trachea midline. No JVD. CARDIOVASCULAR: Regular rate and rhythm. No murmur appreciated. RESPIRATORY: No accessory muscle use. Clear to auscultation. Breath sounds equal bilaterally. GASTROINTESTINAL: Abdomen soft, non-tender, nondistended. MUSCULOSKELETAL: No obvious deformities. No clubbing. No cyanosis. +Bilateral lower extremity edema. NEUROLOGICAL: Awake and alert. No obvious cranial nerve deficits. Motor grossly within normal limits. Normal speech. PSYCHIATRIC: Appropriate mood and affect; insight and judgment normal. Procedures Hemaprompt Stool Procedural Steps Taken: specimen placed in appropriate test area Hemaprompt Stool Result: negative Course Initial Documented Vital Signs Temperature 97.5 F L 01/24/18 10:28 Pulse Rate 70 01/24/18 10:28 Respiratory Rate 18 01/24/18 10:28 Blood Pressure 102/54 L 01/24/18 10:28 Pulse Oximetry 95 01/24/18 10:28 Last Documented Vital Signs Temperature 97.5 F L 01/24/18 10:28 Pulse Rate 62 01/24/18 13:22 Respiratory Rate 18 01/24/18 13:22 Blood Pressure 122/65 01/24/18 13:22 Pulse Oximetry 92 L 01/24/18 13:22 Medical Decision Making MDM Narrative Medical decision making narrative: 87yo M was sent in by his medical staff credentialing coordinator for blood transfusion. We repeated his blood work and his hemoglobin is 8.7 today. His baseline is around 9. Pt said Dr. Beaver wants his hemoglobin above 10. INR is therapeutic at 2.1. Pt said he has been having intermittent dark stool but today on rectal exam, stool is brown and negative for hemaprompt. BUN/ creatinine elevated but at baseline. BNP is elevated at 876. He has a history of CHF but denies any sob or chest pain now. Multiple calls put out for Dr. Beaver but I did not get a call back. I discussed with Dr. Barnes who was eventually able to discuss with Dr. Beaver himself and Dr. Beaver agrees to no transfusion but wants pt admitted for observation and GI consult for colonoscopy. Medical Screen Exam Complete: Yes Emergency Medical Condition: Yes Differential Diagnosis Differential Diagnosis: Chronic anemia vs. GI bleed vs. CHF Lab Data Result diagrams: 01/24/18 11:20 01/24/18 11:20 Lab Results 01/24/18 01/24/18 01/24/18 Range/Units 11:20 11:20 11:20 CBC w Diff Auto diff final WBC 5.8 (4.0-11.0) th/mm3 RBC 3.01 L (4.50-5.90) mil/mm3 Hgb 8.7 L (13.0-17.0) gm/dL Hct 25.9 L (39.0-51.0) % MCV 86.1 (80.0-100.0) fL MCH 29.0 (27.0-34.0) pg MCHC 33.7 (32.0-36.0) % RDW 17.5 H (11.6-17.2) % Plt Count 175 (150-450) th/mm3 MPV 7.6 (7.0-11.0) fL Neut % (Auto) 82.5 H (16.0-70.0) % Lymph % (Auto) 8.2 L (9.0-44.0) % [facility] % (Auto) 7.3 (0.0-8.0) % Eos % (Auto) 1.8 (0.0-4.0) % Baso % (Auto) 0.2 (0.0-2.0) % Neut # (Auto) 4.8 (1.8-7.7) th/mm3 Lymph # (Auto) 0.5 L (1.0-4.8) th/mm3 [facility] # (Auto) 0.4 (0.0-0.9) th/mm3 Eos # (Auto) 0.1 (0.0-0.4) th/mm3 Baso # (Auto) 0.0 (0.0-0.2) th/mm3 WBC Differential . Differential Comment . PT 21.4 H (9.8-11.6) sec INR 2.1 Ratio APTT 33.7 H (24.3-30.1) sec Sodium 141 (136-145) meq/L Potassium 3.7 (3.5-5.1) meq/L Chloride 105 (98-107) meq/L Carbon Dioxide 25.6 (21.0-32.0) meq/L Anion Gap 10 (5-15) meq/L BUN 50 H (7-18) mg/dL Creatinine 3.10 H (0.60-1.30) mg/dL Estimated GFR 19 L (>89) mL/min Random Glucose 112 H (74-106) mg/dL Calcium 10.1 (8.5-10.1) mg/dL B-Natriuretic Peptide (0-100) pg/mL Blood Type Antibody Screen 01/24/18 01/24/18 Range/Units 11:20 11:20 CBC w Diff WBC (4.0-11.0) th/mm3 RBC (4.50-5.90) mil/mm3 Hgb (13.0-17.0) gm/dL Hct (39.0-51.0) % MCV (80.0-100.0) fL MCH (27.0-34.0) pg MCHC (32.0-36.0) % RDW (11.6-17.2) % Plt Count (150-450) th/mm3 MPV (7.0-11.0) fL Neut % (Auto) (16.0-70.0) % Lymph % (Auto) (9.0-44.0) % [facility] % (Auto) (0.0-8.0) % Eos % (Auto) (0.0-4.0) % Baso % (Auto) (0.0-2.0) % Neut # (Auto) (1.8-7.7) th/mm3 Lymph # (Auto) (1.0-4.8) th/mm3 [facility] # (Auto) (0.0-0.9) th/mm3 Eos # (Auto) (0.0-0.4) th/mm3 Baso # (Auto) (0.0-0.2) th/mm3 WBC Differential Differential Comment PT (9.8-11.6) sec INR Ratio APTT (24.3-30.1) sec Sodium (136-145) meq/L Potassium (3.5-5.1) meq/L Chloride (98-107) meq/L Carbon Dioxide (21.0-32.0) meq/L Anion Gap (5-15) meq/L BUN (7-18) mg/dL Creatinine (0.60-1.30) mg/dL Estimated GFR (>89) mL/min Random Glucose (74-106) mg/dL Calcium (8.5-10.1) mg/dL B-Natriuretic Peptide 876 H (0-100) pg/mL Blood Type O Negative Antibody Screen Negative Discharge Plan Discharge Disposition Patient Disposition: 30 Still Patient Discharge Details Diagnosis: Anemia Physicians Team ED Provider: Jacqueline Parisi Primary Care Provider: Ryan Fuentes Rxs /Orders / Referrals /Forms Prescriptions: No Action furosemide 40 mg Tablet 40 mg PO BID RF: 0 atorvastatin 40 mg Tablet 40 mg PO DAILY RF: 0 amlodipine 5 mg Tablet 5 m PO BID RF: 0 aspirin [Aspir-81] 81 mg Tablet,Delayed Release (Dr/Ec) 81 mg PO DAILY RF: 0 warfarin 4 mg Tablet 4 mg PO Q OTHER DAY RF: 0 warfarin 3 mg Tablet 3 mg PO QTUTHSASU RF: 0 metoprolol tartrate 25 mg Tablet 25 mg PO BID RF: 0 levothyroxine 125 mcg Capsule 125 mcg PO DAILY RF: 0 Discharge Interventions Interventions: Vital Signs Last Done: 01/24/18 13:22 Status ED Status: Admitted Observation Patient
[2018-01-24 11:25] LABS: Baso % (Auto) 0.2 % (0.0-2.0); Eos # (Auto) 0.1 th/mm3 (0.0-0.4); Eos % (Auto) 1.8 % (0.0-4.0); Hematocrit 25.9 % (39.0-51.0); Hemoglobin 8.7 gm/dL (13.0-17.0); Lymph # (Auto) 0.5 th/mm3 (1.0-4.8); Lymph % (Auto) 8.2 % (9.0-44.0); Mean Corpuscular HGB Conc 33.7 % (32.0-36.0); Mean Corpuscular Volume 86.1 fL (80.0-100.0); Mean Platelet Volume 7.6 fL (7.0-11.0); Mono # (Auto) 0.4 th/mm3 (0.0-0.9); Mono % (Auto) 7.3 % (0.0-8.0); Neut # (Auto) 4.8 th/mm3 (1.8-7.7); Neut % (Auto) 82.5 % (16.0-70.0); Platelet Count 175 th/mm3 (150-450); Red Blood Count 3.01 mil/mm3 (4.50-5.90); Red Cell Distribution Width 17.5 % (11.6-17.2); White Blood Count 5.8 th/mm3 (4.0-11.0)
[2018-01-24 11:36] LABS: Potassium 3.7 meq/L (3.5-5.1)
[2018-01-24 11:39] LABS: Calcium 10.1 mg/dL (8.5-10.1)
[2018-01-24 11:40] LABS: Activated Partial Thrombo Time 33.7 sec (24.3-30.1); Carbon Dioxide 25.6 meq/L (21.0-32.0); INR 2.1 Ratio; Prothrombin Time 21.4 sec (9.8-11.6)
[2018-01-24] MEDS ORDERED: Bisacodyl 10 MG Supp RECTAL PRN (13:36)
[2018-01-24] MEDS ORDERED: Acetaminophen 325 MG Tablet PO PRN (13:36)
--- NOTE | 2018-01-24 17:41 | P.HP ---
History of Present Illness Primary Care Physician: Ryan Fuentes MD Chief Complaint: Patient sent here by oncologist for blood transfusion History of Present Illness: 87-year-old male with known history of hypertension, hyperlipidemia, chronic atrial fibrillation, chronic anemia, chronic kidney disease, hypothyroidism who presented to the hospital today at the request of her oncologist for transfusion. Patient states that they went over to have follow- up with Dr. Beaver, oncologist/vice president industrial relations, at their office the hemoglobin was 8.4 and he sent the patient over the hospital to get a transfusion. Patient had workup done emergency department hemoglobin was 8.7. ER physician discussed with patient's oncologist and he would like the patient placed in the hospital for colonoscopy. Patient is already having outpatient workup done by Dr. Ha. Patient has had cardiac clearance performed. Upon talking to the patient and , indicate that since they are not get the transfusion that they were told to come to the hospital for. They do not want to wait for colonoscopy to be performed next week, they want to be discharged and do outpatient follow-up with Dr. Ha and have outpatient procedure performed. Patient is asymptomatic. Denies any fatigue, weakness, lightheadedness, dizziness, shortness of breath, melena, hematochezia. - Diagnosis (1) Anemia Review of Systems All other systems reviewed negative except as stated in HPI PMFSH - History History Provided By: Patient - Medical History Medical History: Medical History (Last Updated 01/24/18 @ 17:24 by PANDA Collier) Chronic anemia Chronic atrial fibrillation Chronic kidney disease High cholesterol Hypertension Hypothyroid Pacemaker - Surgical History Surgical History: Surgical History (Last Updated 01/24/18 @ 17:25 by PANDA Collier) History of cholecystectomy History of thoracentesis - Family History Family History: Family History (Last Updated 01/24/18 @ 17:25 by PANDA Collier) Other No pertinent family history - Tobacco History Second Hand Smoke Exposure: No Tobacco Use In Past 30 Days: No Smoking Status: Former smoker - Alcohol History How Often Do You Have a Drink Containing Alcohol: 2 to 4 times a month - Substance Use History Substance History: No History of Abuse - Travel History Recent Travel in the [place] Within the Last 8 Weeks: No Recent Travel Out of the Country Within the Last 8 Weeks: No - Immunization History Tetanus Immunization: Unsure Hx Influenza Vaccine This Season: Yes Medications and Allergies Active Medications: Active Medications Acetaminophen (Tylenol) 650 mg PO Q4H PRN PRN Reason: Headache, fever, pain 1-4 Al Hydroxide/Mg Hydroxide (Milk Of Magnesia Liq) 30 ml PO Q12H PRN PRN Reason: Mild Constipation Bisacodyl (Dulcolax Supp) 10 mg RECTAL DAILY PRN PRN Reason: SEVERE CONSITIPATION Lactulose (Lactulose Liq) 30 ml PO DAILY PRN PRN Reason: SEVERE CONSITIPATION Ondansetron HCl (Zofran Inj) 4 mg IV.PUSH Q6H PRN PRN Reason: NAUSEA OR VOMITING Sennosides (Senokot) 17.2 mg PO Q12H PRN PRN Reason: Moderate Constipation Allergies Allergy/AdvReac Type Severity Reaction Status Date / Time No Known Allergies Allergy Verified 01/24/18 10:33 Home Medications Medication Instructions Recorded Confirmed Type amlodipine 5 m PO BID 01/24/18 01/24/18 History aspirin [Aspir-81] 81 mg PO DAILY 01/24/18 01/24/18 History atorvastatin 40 mg PO DAILY 01/24/18 01/24/18 History furosemide 40 mg PO BID 01/24/18 01/24/18 History levothyroxine 125 mcg PO DAILY 01/24/18 01/24/18 History metoprolol tartrate 25 mg PO BID 01/24/18 01/24/18 History warfarin 3 mg PO [id number] 01/24/18 01/24/18 History warfarin 4 mg PO Q OTHER DAY 01/24/18 01/24/18 History Exam Vital signs: Vital Signs 01/24/18 10:28 01/24/18 10:52 01/24/18 11:25 Temperature 97.5 F L Pulse Rate 70 65 Respiratory Rate 18 18 18 Blood Pressure 102/54 L 139/69 136/62 Pulse Oximetry 95 95 94 L 01/24/18 13:22 Temperature Pulse Rate 62 Respiratory Rate 18 Blood Pressure 122/65 Pulse Oximetry 92 L Intake & Output 01/23/18 01/24/18 01/24/18 18:59 06:59 18:59 Weight 92 kg Other: Date of Last Bowel Movement 01/24/18 Weight On Admission 91.9 kg Narrative: GENERAL: Well-developed, well-nourished, in no acute distress. alert and orientated HEENT: Head is normocephalic without any lesions or masses noted. Facial features are symmetric. Eyes: Pupils equal round reactive to light. Extraocular muscles are intact. Conjunctivae were clear. Oropharyngeal: Pharynx without any erythema edema. Tongue is midline without deviation. Buccal mucosa is moist without any masses or lesions NECK: Supple without any masses. Trachea midline no deviation. No JVD, no bruits are appreciated CARDIAC: Regular rhythm, regular rate. S1/S2 are heard. 2/6 ejection murmur noted in the mitral region. No gallops or rubs. LUNGS: Clear to auscultation bilaterally. No wheeze, rhonchi or rales. No use of accessory muscles on inspiration or expiration. ABDOMEN: Soft, nontender. Nondistended. Bowel sounds heard in all 4 quadrants. No organomegaly or masses. Negative rebound, negative guarding EXTREMITIES: No edema, pulses are equal bilaterally. No cyanosis or clubbing NEUROLOGY: Mood and affect appear appropriate. Cranial nerves II through XII grossly intact. Muscle strength 5/5 in upper and lower extremities bilaterally. Deep tendon reflexes are 2+ in upper and lower extremities bilaterally. Results - Labs CBC & Chem 7: 01/24/18 11:20 01/24/18 11:20 Labs: Laboratory Results - last 24 hr 01/24/18 01/24/18 01/24/18 11:20 11:20 11:20 CBC w Diff Auto diff final WBC 5.8 RBC 3.01 L Hgb 8.7 L Hct 25.9 L MCV 86.1 MCH 29.0 MCHC 33.7 RDW 17.5 H Plt Count 175 MPV 7.6 Neut % (Auto) 82.5 H Lymph % (Auto) 8.2 L Haines % (Auto) 7.3 Eos % (Auto) 1.8 Baso % (Auto) 0.2 Neut # (Auto) 4.8 Lymph # (Auto) 0.5 L Haines # (Auto) 0.4 Eos # (Auto) 0.1 Baso # (Auto) 0.0 WBC Differential . Differential Comment . PT 21.4 H INR 2.1 APTT 33.7 H Sodium 141 Potassium 3.7 Chloride 105 Carbon Dioxide 25.6 Anion Gap 10 BUN 50 H Creatinine 3.10 H Estimated GFR 19 L Random Glucose 112 H Calcium 10.1 B-Natriuretic Peptide Blood Type Antibody Screen 01/24/18 01/24/18 11:20 11:20 CBC w Diff WBC RBC Hgb Hct MCV MCH MCHC RDW Plt Count MPV Neut % (Auto) Lymph % (Auto) Haines % (Auto) Eos % (Auto) Baso % (Auto) Neut # (Auto) Lymph # (Auto) Haines # (Auto) Eos # (Auto) Baso # (Auto) WBC Differential Differential Comment PT INR APTT Sodium Potassium Chloride Carbon Dioxide Anion Gap BUN Creatinine Estimated GFR Random Glucose Calcium B-Natriuretic Peptide 876 H Blood Type O Negative Antibody Screen Negative Caprini VTE Risk Assessment Caprini VTE Risk Assessment: Moderate/High Risk (score >= 2) Caprini Risk Assessment Model: Point Value = 1 Point Value = 2 Point Value = 3 Point Value = 5 Age 41-60 Minor surgery BMI > 25 kg/m2 Swollen legs Varicose veins or History of unexplained or recurrent spontaneous Oral contraceptives or hormone replacement Sepsis (< 1 month) Serious lung disease, including pneumonia (< 1 month) Abnormal pulmonary function Acute myocardial infarction Congestive heart failure (< 1 month) History of inflammatory bowel disease Medical patient at bed rest Age 61-74 Arthroscopic surgery Major open surgery (> 45 min) Laparoscopic surgery (> 45 min) Malignancy Confined to bed (> 72 hours) Immobilizing plaster cast Central venous access Age >= 75 History of VTE Family history of VTE Factor V Leiden Prothrombin [id number] Lupus anticoagulant Anticardiolipin antibodies Elevated serum homocysteine Heparin-induced thrombocytopenia Other congenital or acquired thrombophilia Stroke (< 1 month) Elective arthroplasty Hip, pelvis, or leg fracture Acute spinal cord injury (< 1 month) Prophylaxis Regimen: Total Risk Factor Score Risk Level Prophylaxis Regimen 0-1 Low Early ambulation 2 Moderate Order ONE of the following: *Sequential Compression Device (SCD) *Heparin 5000 units SQ BID 3-4 Higher Order ONE of the following medications: *Heparin 5000 units SQ TID *Enoxaparin/Lovenox 40 mg SQ daily (WT < 150 kg, CrCl > 30 mL/min) *Enoxaparin/Lovenox 30 mg SQ daily (WT < 150 kg, CrCl > 10-29 mL/min) *Enoxaparin/Lovenox 30 mg SQ BID (WT < 150 kg, CrCl > 30 mL/min) AND/OR *Sequential Compression Device (SCD) 5 or more Highest Order ONE of the following medications: *Heparin 5000 units SQ TID (Preferred with Epidurals) *Enoxaparin/Lovenox 40 mg SQ daily (WT < 150 kg, CrCl > 30 mL/min) *Enoxaparin/Lovenox 30 mg SQ daily (WT < 150 kg, CrCl > 10-29 mL/min) *Enoxaparin/Lovenox 30 mg SQ BID (WT < 150 kg, CrCl > 30 mL/min) AND *Sequential Compression Device (SCD) Assessment and Plan - Assessment (1) Anemia Code(s): D64.9 - Anemia, unspecified Status: Acute - Plan Anemia -Hemoglobin is 8.7, continue monitor hemoglobin and transfuse if hemoglobin below 8.0 -Patient should follow-up with vice president industrial relations in outpatient setting -Oncologist recommending colonoscopy. Discussed with patient's colorectal specialist who indicated that the patient already is being worked up for outpatient procedure. Dr. Ha recommended patient continue with outpatient care. She indicated that it would not be until next week until she can have colonoscopy performed in the hospital. She can get it done sooner in the outpatient setting. -Patient does have an INR of 2.1, patient's Coumadin would have to be held until INR 1.5 or below in order to have procedure performed. -Discussed with Dr. Beaver, he indicated that since patient's hemoglobin is stable , blood pressure is stable, patient has appointment with Dr. Ha tomorrow to arrange outpatient colonoscopy. He feels that is appropriate that the patient can be discharged to have outpatient workup performed. Hypertension, hyperlipidemia, chronic atrial fibrillation -Home medications have been continued DVT prevention -Patient is on warfarin, INR 2.1 Discharge Planning: Discharge home in stable condition Activity: Ad jessy. Diet: Healthy heart diet Medication per medication reconciliation Follow-up with primary medical doctor in 1 week (1) Anemia Qualifiers: Anemia type: unspecified type Qualified Code(s): D64.9 - Anemia, unspecified
[2018-01-24 18:32] VITALS: BP 157/70; PULSE 64; RESP 20; TEMP 97; O2SAT 90
== END 2018-01-24 19:10 | disposition home or self-care (01) ==
LOC: PHEDA 10:19 → PHED 10:19 → PH3 14:03
PROVIDERS: ADMIT Hospitalist; ATTEND Hospitalist